=== PATIENT | male | born 1995 | race Caucasian/White ===

== ENCOUNTER 2022-05-02 06:36 | Observation (INO) | payer BC ==
[2022-05-02] MEDS ORDERED: ACETAMINOPHEN 500 MG TAB ONE (07:22)
[2022-05-02] MEDS ORDERED: Ringers Lactate 1,000 ML IV ONE (07:22)
[2022-05-02] MEDS ORDERED: NA CIT/CITRIC AC 30 ML ORAL UDC ONE (07:22)
[2022-05-02 07:28] LABS: SARS-CoV-2 Antigen Rapid Res Negative (Negative)
[2022-05-02] MEDS ORDERED: OXYMETAZOLINE HCL 0.05% 15ML NAS ONE ×2 (07:39→09:58)
[2022-05-02] MEDS ORDERED: LIDOCAINE 1% W/EPI 1:100,000 MDV 20 ML VIAL ONE (07:39)
[2022-05-02] MEDS ORDERED: NA CHLORIDE 0.9% 500 ML ONE ×2 (08:24→08:32)
[2022-05-02] MEDS ORDERED: propofoL 200 MG/20 ML VIAL IV ONE (08:25)
[2022-05-02] MEDS ORDERED: LIDOCAINE 1% MPF 5 ML VIAL ONE (08:25)
[2022-05-02] MEDS ORDERED: MIDAZOLAM HCL 2 MG/2 ML INJ ONE (08:25)
[2022-05-02] MEDS ORDERED: VECURONIUM 10 MG/VIAL IV ONE (08:26)
[2022-05-02] MEDS ORDERED: NS 0.9% VIAL 10 ML ONE (08:26)
[2022-05-02] MEDS ORDERED: FENTANYL CITR 250 MCG/5 ML ONE (08:26)
[2022-05-02] MEDS ORDERED: CEFAZOLIN SODIUM 1 GM/VIAL ONE (08:45)
[2022-05-02 08:53] VITALS: O2SAT 100
[2022-05-02] MEDS ORDERED: LIDOCAINE JELLY 2%- 5 ML TUBE ONE (08:53)
[2022-05-02] MEDS ORDERED: dexAMETHasone 10 MG/ML VIAL ONE (09:13)
[2022-05-02] MEDS ORDERED: KETOROLAC 30 MG/ML INJ ONE (09:13)
[2022-05-02] MEDS ORDERED: ONDANSETRON 4 MG/2 ML VIAL ONE (09:14)
[2022-05-02] MEDS ORDERED: SUCCINYLCHOLINE 20 MG/ML (10 ML) IV ONE (09:50)
[2022-05-02] MEDS ORDERED: NEOSTIGMINE 1 MG/ML -10 ML VIAL ONE (11:22)
[2022-05-02] MEDS ORDERED: GLYCOPYRROLATE 0.2 MG/ML SYR ONE (11:22)
[2022-05-02] MEDS: METHYLPREDNISOLONE 125 MG INJ IV SCH ×2 (12:00→17:19)
[2022-05-02] MEDS ORDERED: D5 0.45 NS 1,000 ML IV SCH (12:00)
[2022-05-02] MEDS ORDERED: CODEINE 30MG/APAP 300MG TAB PO PRN (12:03)
[2022-05-02] MEDS ORDERED: ACETAMINOPHEN 325 MG TABLET PO PRN (12:03)
[2022-05-02] MEDS ORDERED: MORPHINE 2 MG/ML SYR IV PRN ×2 (12:04)
[2022-05-02 13:41] VITALS: BMI 29.9
[2022-05-02] MEDS ORDERED: CEFAZOLIN 2 GM IN 0.9% NACL 2 GM/100 ML BAG IV SCH (17:00)
[2022-05-02] MEDS: CEFAZOLIN 2 GM IN 0.9% NACL 2 GM/100 ML BAG IV SCH (17:19)
--- NOTE | 2022-05-02 18:35 | P.PN ---
Date of Service: 05/02/22 ENT Postop Note Patient seen and examined. He denies epistaxis, posterior pharyngeal bleeding, pain, nausea/vomiting and he is tolerating clear fluids. Exam: General: VSS and awake alert and oriented. Eyes: PERRLA/EOMI Nose: bilateral surgicel intact and mustache dressing intact with no active bleeding. Throat: mild soft palate and uvula edema; no evidence of active bleeding or blood clots. Impression: 1. Nasopharyngeal mass-- s/p biopsies. 2. Bilateral nasal polyposis-- s/p endoscopic removal. 3. Left deviated septum-- s/p septoplasty. Plan: 1. May advance diet to regular diet when tolerated. 2. Continue Ancef, solumedrol IV. 3. Pain management with tylenol #3, morphine, and tylenol prn. 4. Lovenox and SCDs. 5. Obtain CBC with Differential in am. 6. Hope to d/c by lunchtime.
[2022-05-02] MEDS ORDERED: ASPIRIN EC 81 MG TAB PO ONE (21:00)
[2022-05-03] MEDS: METHYLPREDNISOLONE 125 MG INJ IV SCH ×3 (00:35→11:31)
[2022-05-03] MEDS: CEFAZOLIN 2 GM IN 0.9% NACL 2 GM/100 ML BAG IV SCH ×2 (00:35→09:22)
--- NOTE | 2022-05-03 03:45 | OP ---
Date of Procedure: 05/02/2022 Surgeon: ASHANTI URRUTIA Primary Care Physician: Unknown. Preoperative Diagnoses: 1. Neoplasm of nasopharynx -- Uncertain behavior. 2. Bilateral nasal polyps. 3. Left nasal septal deviation. Postoperative Diagnoses: 1. Neoplasm of nasopharynx -- Uncertain behavior. 2. Bilateral nasal polyps. 3. Left nasal septal deviation. Procedures Performed: 1. Direct laryngoscopy. 2. Biopsies of nasopharynx. 3. Bilateral diagnostic sinus endoscopy with biopsies of bilateral nasal polyps. 4. Septoplasty. 5. Bilateral nasal polypectomies under CT image guidance with UpRace CT image guidance system. Anesthesia: General endotracheal anesthesia was administered. I also infiltrated approximately 12 to 15 mL of 1% lidocaine with 1:100,000 epinephrine into the nasopharyngeal mass and bilateral nasal polyps and bilateral nasal septal mucosa. Estimated Blood Loss: Between 15 to 25 mL. Specimens: Obtained from nasopharynx and bilateral nasal cavities. Findings: Large nasopharyngeal mass extending inferiorly into the oropharynx, measuring at least 6 cm in diameter. Mass is friable with evidence of necrosis and exophytic. Bilateral nasal cavity obstruction secondary to nasopharyngeal mass blocking the posterior choanae as well as nasal polyps extending from caudal bilateral nasal cavities posteriorly and into bilateral maxillary sinuses. Complications: None. Disposition: Stable. The patient tolerated procedure well. 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 These were indications to bring the patient to proceed for the above-mentioned procedure. He understood. All questions were answered. Risks versus benefits and complications were explained in detail and a consent form was signed, which was placed in the chart. Description Of Procedure: The patient was transferred from the preoperative holding area to the operative suite by Department of Anesthesia, placed on the operating room table supine, sedated, intubated in normal fashion. The patient was intubated with a 6.5 mm endotracheal tube. The patient was rotated 90 degrees and a head rest was placed. The patient was placed into reverse Trendelenburg. A rigid laryngoscope was introduced along the endotracheal tube and suspended from the Kimball stand once at the level of the laryngeal complex. Photo documentation was obtained. There was no evidence of any abnormalities located in the larynx. The patient was then de-suspended and all areas of the hypopharynx were examined, including posterior hypopharynx, bilateral piriform sinuses, posterior cricoid. There was no evidence of any abnormalities visualized. I then examined the epiglottis, vallecula, and base of tongue and I did not detect any abnormalities. The scope was removed. A McIvor retractor was introduced through the right oral commissure and directed along the endotracheal tube and suspended from the Kimball stand. Tonsils were hypertrophic with mild asymmetry with the right tonsil being slightly larger than the left tonsil; however, no evidence of neoplasm seen. However, there was a large neoplasm extending from the posterior oropharynx superiorly to the nasopharynx. I took multiple biopsies from this mass, and frozen section obtained did not demonstrate any evidence of malignancy. The rest of the specimens obtained were sent fresh. Hemostasis was achieved with suction Bovie. The patient was desuspended from the kimball stand and McIvor retractor was removed. I then turned my attention to his sinuses. The table was rotated an additional 90 degrees to 180 degrees total. Afrin-soaked nasal pledgets were introduced into bilateral nasal cavities in order to obtain vasoconstriction and decongestion. Bilateral nasal polyps were injected with approximately 10 mL of 1% lidocaine with 1:100,000 epinephrine. Once allowed to stay in place for 10 to 15 minutes, I then removed them. I utilized a 0-degree rigid nasal endoscope and advanced along the floor of the right nasal cavity, and I removed the nasal polyps with a 4.0 straight microdebrider blade on a setting of 3,000 rpm. He had extensive involvement of right nasal cavity and extending back to the sphenoid sinus and ethmoids as well as the right maxillary sinus. I was able to remove most of the polyps. Hemostasis was achieved with suction Bovie on a setting of 25 for coagulation. I then introduced FloSeal and Surgicel packing into the right nasal cavity. I then turned my attention to the left nasal cavity. The patient had significant left nasal septal deviation with a large inferior septal spur, so I elevated the left nasal septal mucosa with a [place] elevator and removed the bone spur with Blakesley forceps once I was able to isolate the bone. I was then able to open up the nasal cavity utilizing a [place] elevator by outfracturing the left inferior turbinate and the nasal septum. Once I was able to obtain patency of the cavity, I was then able to remove the left nasal cavity polyps with a 4.0 microdebrider blade. Hemostasis was achieved with suction Bovie, and then I introduced FloSeal and Surgicel into the left nasal cavity and a mustache dressing was placed. I then returned to the nasopharynx and oropharynx by elevating the soft palate anteriorly, and I removed a large amount of specimen involving the nasopharynx extending into the oropharynx and this was sent to Pathology fresh for further testing. Hemostasis was achieved with suction Bovie. He tolerated the procedure well. He will be placed in observation and we will start Ancef 2 g q.8, and he will be given Lovenox subcutaneous as well as p.r.n. pain medication and fluids, and hopefully be discharged the next day. ALEJANDRO/ANATOLY Voice ID: [id number] Report ID: [id number] MTDAlison
[2022-05-03 06:17] LABS: Absolute Lymphocytes (CBC) 1.1 K/uL (0.7-4.9); Hematocrit 38.4 % (39.6-49.0); Lymphocytes % 7.1 % (15.3-44.8); MCV 84.8 fL (80-100); MPV 8.2 fL (7.6-11.3); RBC Red Blood Cell Count 4.52 M/uL (4.33-5.43)
[2022-05-03] MEDS ORDERED: ENOXAPARIN 40 MG/0.4 ML SQ SCH (07:00)
[2022-05-03 12:03] VITALS: BP 141/89; TEMP 98.9
--- NOTE | 2022-05-03 12:09 | P.DS ---
Admission Date: 05/02/22 Discharge Date: 05/03/22 Primary Care Provider: Unknown Disposition: ROUTINE DISCHARGE Discharge Condition: GOOD Reason for Admission: S/p nasal polypectomy and nasopharyngeal biopsies; observed for bleeding Consultations: Patient seen and examined. He denies posterior pharyngeal bleeding, pain, nausea/vomiting and he is tolerating oral intake. He has changed the moustache dressng about six times since surgery. Exam: General: VSS and awake alert and oriented. Eyes: PERRLA/EOMI Nose: bilateral surgicel intact and mustache dressing intact with no active bleeding. Throat: mild soft palate and uvula edema; no evidence of active bleeding or blood clots. CBC: elevated WBC and neutrophils; Hgb and HCT is mildly below normal range. Impression: 1. Nasopharyngeal mass-- s/p biopsies. 2. Bilateral nasal polyposis-- s/p endoscopic removal. 3. Left deviated septum-- s/p septoplasty. Plan: 1. May d/c home today. 2. Start amoxicillin 500mg BID, mupirocin ointment BID, and tapered prednisone. 3. Pain management with tylenol prn. 4. Pathology results pending. 5. Followup in one week to pull Surgicel packing. Vital Signs/Physical Exam: Temp Pulse Resp BP Pulse Ox 98.9 F 106 H 18 141/89 H 100 05/03/22 12:00 05/03/22 12:00 05/03/22 12:00 05/03/22 12:00 05/03/22 12:00 Laboratory Data at Discharge: WBC 16.1 K/uL (4.3-10.9) H 05/03/22 05:50 Hgb 13.1 g/dL (13.6-17.9) L 05/03/22 05:50 Hct 38.4 % (39.6-49.0) L 05/03/22 05:50 Plt Count 341 K/uL (152-406) 05/03/22 05:50 Home Medications: NK [No Home Meds] 05/02/22
== END 2022-05-03 14:15 | disposition home or self-care (01) ==
LOC: OR 06:36 → 4TH 12:24
PROVIDERS: ADMIT Otolaryngology Facial Plastic Surgery; ATTEND Otolaryngology Facial Plastic Surgery
PROC: 09BN8ZX Excision of Nasopharynx, Via Natural or Artificial Opening Endoscopic, Diagnostic (ICD-10-PCS; 2022-05-02)
PROC: 8E09XBG Computer Assisted Procedure of Head and Neck Region, With Computerized Tomography (ICD-10-PCS; 2022-05-02)
PROC: 0CJS8ZZ Inspection of Larynx, Via Natural or Artificial Opening Endoscopic (ICD-10-PCS; 2022-05-02)
PROC: 09SM4ZZ Reposition Nasal Septum, Percutaneous Endoscopic Approach (ICD-10-PCS; principal; 2022-05-02 08:15)
DX: D10.6 Benign neoplasm of nasopharynx (principal); J34.2 Deviated nasal septum; J33.9 Nasal polyp, unspecified; Z20.822 Contact with and (suspected) exposure to COVID-19
CPT/HCPCS: 36415; 85025; 87811; 88305; 88311; 88331; 88332; G0378; G0379; J0330; J0690; J1100; J1650; J2250; J2405; J2704; J2710; J2930; J3010; J7040; J7120